=== PATIENT | female | born 1990 | race Caucasian/White ===

== ENCOUNTER 2018-05-06 06:55 | Day surgery (SDC) | payer OTHER ==
[2018-05-06] MEDS ORDERED: SIMETHICONE 40 MG/0.6 ML ML ONE (07:20)
[2018-05-06] MEDS ORDERED: MIDAZOLAM HCL 5 MG/5 ML VIAL ONE (07:21)
[2018-05-06] MEDS ORDERED: MEPERIDINE HCL/PF 100 MG/ML AMP ONE (07:21)
[2018-05-06 07:25] LABS: HCG,QUAL RESULT NEGATIVE (NEGATIVE)
[2018-05-06 13:43] VITALS: BP_SYST 117
== END 2018-05-06 10:25 | disposition home or self-care (01) ==
LOC: SDS 06:55 → SMU 06:55 → SDS 10:25
PROVIDERS: ATTEND Internal Medicine Gastroenterology
DX: K51.90 Ulcerative colitis, unspecified, without complications (principal); K51.311 Ulcerative (chronic) rectosigmoiditis with rectal bleeding; E55.9 Vitamin D deficiency, unspecified; Z86.010 Personal history of colon polyps; Z68.36 Body mass index [BMI] 36.0-36.9, adult; K62.1 Rectal polyp
CPT/HCPCS: 45380; 84703; 87045; 87046 ×2; 87177; 87230; 88305; 89055; J2175; J2250